=== PATIENT | male | born 2000 | race African-American/Black ===

== ENCOUNTER 2022-07-22 12:45 | Emergency (ER) | payer OTHER ==
[2022-07-22] MEDS ORDERED: IBUPROFEN 600 MG TABLET PO ONE (14:00)
[2022-07-22] MEDS ORDERED: LIDOCAINE 5% TRANSDERMAL PATCH TD ONE (14:00)
[2022-07-22] MEDS ORDERED: BACLOFEN 10 MG TABLET PO ONE (14:00)
[2022-07-22] MEDS ORDERED: IBUP-1492 PO (16:27)
[2022-07-22] MEDS ORDERED: BACL10TA PO (16:28)
[2022-07-22 16:38] VITALS: BP 145/80
== END 2022-07-22 23:15 | disposition home or self-care (01) ==
LOC: EMS 12:58
DX: M54.50 Low back pain, unspecified (principal)
CPT/HCPCS: 71046; 99283